=== PATIENT | female | born 1950 | race Caucasian/White ===

== ENCOUNTER 2018-04-17 14:32 | Inpatient (IN) | payer OTHER ==
[2018-04-17 15:11] LABS: ADD MAN DIFF? NO
[2018-04-17 15:18] LABS: BASOPHIL # 0.1 10^3/ul (0.0-0.1); BASOPHILS % 0.6 % (0.0-2.0); EOSINOPHILS % 0.3 % (0.0-7.0); HEMATOCRIT 40.9 % (37.0-47.0); HEMOGLOBIN 13.7 g/dl (12.0-16.0); LYMPHOCYTES # 1.8 10^3/ul (0.8-2.9); LYMPHOCYTES % 14.9 % (15.0-51.0); MEAN CORPUSCULAR HEMOGLOBIN 29.9 pg (29.0-33.0); MEAN CORPUSCULAR HGB CONC 33.5 g/dl (32.0-37.0); MEAN CORPUSCULAR VOLUME 89.3 fl (82.0-101.0); MEAN PLATELET VOLUME 10.6 fl (7.4-10.4); MONOCYTE # 0.9 10^3/ul (0.3-0.9); MONOCYTES % 7.4 % (0.0-11.0); NEUTROPHIL # 9.2 10^3/ul (1.6-7.5); NEUTROPHILS % 76.5 % (39.0-77.0); PLATELET COUNT 265 10^3/UL (140-415); RED BLOOD COUNT 4.58 10^6/ul (4.20-5.40); RED CELL DISTRIBUTION WIDTH 12.5 % (11.5-14.5)
[2018-04-17] MEDS: SODIUM CHLORIDE 0.9% 1L BAG IV* (15:26)
[2018-04-17] MEDS: ASPIRIN 81 MG TAB PO (15:26)
[2018-04-17] MEDS: ACETAMINOPHEN 325 MG TAB PO (15:27)
[2018-04-17 15:28] LABS: UR NONSQUAMOUS EPITHELIAL CELL 1 /HPF (NONE SEEN); UR RBC 37 /HPF (0-5); UR SQUAMOUS EPITHELIAL CELL FEW /HPF (FEW); UR WBC 13 /HPF (0-5)
[2018-04-17 15:36] LABS: ANION GAP 13 (5-13); BLOOD UREA NITROGEN 13 mg/dl (7-20); CALCIUM 9.4 mg/dl (8.4-10.2); CARBON DIOXIDE 27 mmol/L (21-31); CHLORIDE 103 mmol/L (97-110); CREATININE 0.63 mg/dl (0.44-1.00); Estimated GFR > 60 mL/min (>60); GLUCOSE 245 mg/dl (70-220); SODIUM 143 mmol/L (135-144)
[2018-04-17 15:38] LABS: ADD UMIC YES; UR ASCORBIC ACID NEGATIVE (NEGATIVE); UR BILIRUBIN (Dip) NEGATIVE (NEGATIVE); UR BLOOD (Dip) 3+ mg/dL (NEGATIVE); UR CLARITY SLIGHTLY CLOUDY (CLEAR); UR COLOR YELLOW (YELLOW); UR GLUCOSE (Dip) NEGATIVE (NEGATIVE); UR KETONES (Dip) NEGATIVE (NEGATIVE); UR LEUKOCYTE ESTERASE (Dip) 1+ Leu/ul (NEGATIVE); UR MUCUS FEW /HPF (NONE SEEN); UR NITRITE (Dip) NEGATIVE (NEGATIVE); UR SPECIFIC GRAVITY (Dip) 1.019 (1.003-1.030); UR TOTAL PROTEIN (Dip) NEGATIVE (NEGATIVE); UR UROBILINOGEN (Dip) NEGATIVE (NEGATIVE)
[2018-04-17 15:47] LABS: TROPONIN-I < 0.012 ng/ml (0.000-0.120)
[2018-04-17 15:47] LABS: LACTIC ACID 3.8 mmol/L (0.5-2.0)
[2018-04-17 15:53] LABS: INR 0.94; PROTIME 12.7 Sec (11.9-14.9)
[2018-04-17 15:54] LABS: PARTIAL THROMBOPLASTIN TIME 29.7 Sec (23.0-35.0)
[2018-04-17] MEDS: VANCOMYCIN 1 GM (PMX) 250 ML IVPB (16:00)
[2018-04-17] MEDS: CEFEPIME 2GM/50 ML (PMX) 50 ML IVPB (16:00)
[2018-04-17] MEDS ORDERED: ACETAMINOPHEN 325 MG TAB PO ×2 (16:30→18:00)
[2018-04-17] MEDS ORDERED: ONDANSETRON 4 MG INJ IV ×2 (16:30→18:00)
[2018-04-17 17:43] LABS: LACTIC ACID 2.1 mmol/L (0.5-2.0)
[2018-04-17] MEDS ORDERED: morphine 2 MG INJ IV (18:00)
[2018-04-17] MEDS ORDERED: NACL 0.9% 3 ML SYG IV (18:00)
[2018-04-17] MEDS ORDERED: ZOLPIDEM 5 MG TAB PO (18:00)
[2018-04-17] MEDS ORDERED: DOCUSATE SODIUM 100 MG CAP PO (18:00)
[2018-04-17] MEDS: CEFTRIAXONE 1 GM/50 ML (PMX) 50 ML IVPB (18:00)
[2018-04-17] MEDS: SOD CHLORIDE 0.9% 1,000 ML IV (19:43)
[2018-04-17 21:03] LABS: LACTIC ACID 1.1 mmol/L (0.5-2.0)
[2018-04-18] MEDS: HYDROCODONE/APAP (5/325) TAB PO (03:22)
[2018-04-18] MEDS: SOD CHLORIDE 0.9% 1,000 ML IV ×2 (03:23→08:50)
[2018-04-18 06:48] LABS: ADD MAN DIFF? NO
[2018-04-18 06:53] LABS: BASOPHIL # 0.1 10^3/ul (0.0-0.1); BASOPHILS % 0.6 % (0.0-2.0); EOSINOPHILS # 0.1 10^3/ul (0.0-0.5); EOSINOPHILS % 0.5 % (0.0-7.0); HEMATOCRIT 35.6 % (37.0-47.0); HEMOGLOBIN 11.9 g/dl (12.0-16.0); LYMPHOCYTES # 2.5 10^3/ul (0.8-2.9); LYMPHOCYTES % 23.8 % (15.0-51.0); MEAN CORPUSCULAR HEMOGLOBIN 30.2 pg (29.0-33.0); MEAN CORPUSCULAR HGB CONC 33.4 g/dl (32.0-37.0); MEAN CORPUSCULAR VOLUME 90.4 fl (82.0-101.0); MEAN PLATELET VOLUME 10.9 fl (7.4-10.4); MONOCYTE # 0.9 10^3/ul (0.3-0.9); MONOCYTES % 8.4 % (0.0-11.0); NEUTROPHILS % 66.4 % (39.0-77.0); PLATELET COUNT 214 10^3/UL (140-415); RED BLOOD COUNT 3.94 10^6/ul (4.20-5.40); RED CELL DISTRIBUTION WIDTH 12.9 % (11.5-14.5)
[2018-04-18 06:53] LABS: WHITE BLOOD COUNT 10.5 10^3/ul (4.8-10.8)
[2018-04-18 07:47] LABS: ANION GAP 9 (5-13); BLOOD UREA NITROGEN 9 mg/dl (7-20); CALCIUM 8.1 mg/dl (8.4-10.2); CARBON DIOXIDE 24 mmol/L (21-31); CHLORIDE 110 mmol/L (97-110); CREATININE 0.53 mg/dl (0.44-1.00); Estimated GFR > 60 mL/min (>60); GLUCOSE 115 mg/dl (70-220); PHOSPHORUS 2.9 mg/dl (2.5-4.9); POTASSIUM 3.3 mmol/L (3.5-5.1); SODIUM 143 mmol/L (135-144)
[2018-04-18 08:19] LABS: HEMOGLOBIN A1C 5.8 % (0-5.9)
[2018-04-18] MEDS: POTASSIUM CHLORIDE (SR) 20 MEQ TAB PO (09:08)
[2018-04-18 09:51] LABS: TROPONIN-I < 0.012 ng/ml (0.000-0.120)
== END 2018-04-18 14:11 | disposition home or self-care (01) | DRG 872 ==
LOC: E/R 14:32 → TEL 16:13
DX: A41.9 Sepsis, unspecified organism (principal); N39.0 Urinary tract infection, site not specified; M79.18 Myalgia, other site
CPT/HCPCS: 36415; 71045; 80048; 81001; 83036; 83605; 83735; 84100; 84484; 85025; 85610; 85730; 87040; 87086; 87400; 93005; 96374; 96375; 99291-25